=== PATIENT | female | born 1985 | race African-American/Black ===

== ENCOUNTER 2022-10-16 01:07 | Emergency (ER) | payer BC, OTHER ==
[~2022-10-16] VITALS: Ht 170.2 cm; Wt 85.7 kg
[2022-10-16] MEDS ORDERED: KETOROLAC TROMETHAMINE INJ 30 MG/ML VIAL IM ONE (01:30)
[2022-10-16] MEDS ORDERED: predniSONE 20 MG TABLET PO ONE (01:30)
[2022-10-16] MEDS ORDERED: IPRATROPIUM NEB FS 0.5 MG/2.5 ML AMPUL.NEB NEB ONE (01:30)
[2022-10-16] MEDS ORDERED: ALBUTEROL FS 2.5 MG/3 ML VIAL.NEB NEB ONE (01:30)
[2022-10-16] MEDS ORDERED: ACETAMINOPHEN 325 MG TABLET PO ONE (01:30)
[2022-10-16 01:38] VITALS: O2SAT 97
[2022-10-16] MEDS ORDERED: ALBUTEROL FS 2.5 MG/0.5 ML VIAL.NEB ONE (01:39)
[2022-10-16] MEDS ORDERED: ALBUTEROL FS 2.5 MG/3 ML VIAL.NEB ONE (01:40)
[2022-10-16 01:48] VITALS: O2SAT 97; O2SAT 99
[2022-10-16] MEDS ORDERED: KETO10TA2 PO (04:47)
[2022-10-16] MEDS ORDERED: CYCL5TAB PO (04:47)
[2022-10-16] MEDS ORDERED: TRAMADOL HCL 50 MG TABLET ONE (04:53)
[2022-10-16] MEDS ORDERED: TRAMADOL HCL 50 MG TABLET PO ONE (05:00)
[2022-10-16] MEDS ORDERED: IBUPROFEN 400 MG TABLET PO ONE (05:00)
[2022-10-16 05:10] VITALS: BP 134/78; TEMP 98.1; O2SAT 99
== END 2022-10-16 05:16 | disposition home or self-care (01) ==
LOC: ER 01:20
DX: J45.901 Unspecified asthma with (acute) exacerbation (principal); R07.89 Other chest pain; M25.561 Pain in right knee; M25.562 Pain in left knee; Z88.0 Allergy status to penicillin; V47.5XXA Car driver injured in collision with fixed or stationary object in traffic accident, initial encounter; Y93.89 Activity, other specified; Y92.89 Other specified places as the place of occurrence of the external cause; Y99.8 Other external cause status
CPT/HCPCS: 71100-TC; 73564-TC

== ENCOUNTER 2023-09-24 00:32 | Emergency (ER) | payer OTHER ==
[~2023-09-24] VITALS: Ht 170.2 cm; Wt 85.7 kg
[~2023-09-24 00:32] MED LIST: CYCL5TAB PO; KETO10TA2 PO
[2023-09-24] MEDS ORDERED: CYCL5TAB PO (02:45)
[2023-09-24] MEDS ORDERED: IBUPROFEN 400 MG TABLET ONE (02:54)
[2023-09-24] MEDS ORDERED: CYCLOBENZAPRINE 10 MG TABLET ONE (02:54)
[2023-09-24] MEDS: IBUPROFEN 400 MG TABLET PO ONE (02:58)
[2023-09-24] MEDS: CYCLOBENZAPRINE 10 MG TABLET PO ONE (02:58)
[2023-09-24 02:59] VITALS: BP 119/69; TEMP 98.2; O2SAT 100
== END 2023-09-24 03:16 | disposition home or self-care (01) ==
LOC: ER 00:33
DX: M54.50 Low back pain, unspecified (principal); J45.909 Unspecified asthma, uncomplicated; Z88.0 Allergy status to penicillin; V43.62XA Car passenger injured in collision with other type car in traffic accident, initial encounter; Y93.89 Activity, other specified; Y92.488 Other paved roadways as the place of occurrence of the external cause; Y99.8 Other external cause status